=== PATIENT | male | born 1995 | race Caucasian/White ===

== ENCOUNTER 2022-02-19 15:35 | Emergency (ER) | payer OTHER ==
[2022-02-19 16:38] LABS: HEMOGLOBIN 15.6 gm/dl (14.0-17.5); RED BLOOD COUNT 5.42 M/UL (4.20-5.50); WHITE BLOOD COUNT 6.4 K/UL (4.5-11.0)
[2022-02-19 16:57] LABS: BUN/CREATININE RATIO 19 (0-10)
[2022-02-19 17:06] LABS: ADENOVIRUS F 40/41 Not Detected (Negative); ASTROVIRUS Not Detected (Negative); CAMPYLOBACTER Not Detected (Negative); CRYPTOSPORIDIUM Not Detected (Negative); E.COLI 0157 Not Detected (Negative); ENTAMOEBA HISTOLYTICA Not Detected (Negative); ENTEROAGGREGATIVE E.COLI (EAEC Not Detected (Negative); ENTEROPATHOGENIC E.COLI (EPEC) Not Detected (Negative); ENTEROTOXIGENIC E.COLI (ETEC) Not Detected (Negative); GIARDIA LAMBLIA Not Detected (Negative); NOROVIRUS GI/GII Not Detected (Negative); PLESIOMONAS SHIGELLOIDES Not Detected (Negative); SALMONELLA Not Detected (Negative); SAPOVIRUS Not Detected (Negative); SHIG/ENTEROINVAS.ECOLI (EIEC) Not Detected (Negative); SHIGA-LIK TOX.PRO.E.COLI (STEC Not Detected (Negative); VIBRIO Not Detected (Negative); VIBRIO CHOLERAE Not Detected (Negative); YERSINIA ENTEROCOLITICA Not Detected (Negative)
[2022-02-19 18:52] LABS: CLOSTRIDIUM DIFFICILE TOX A/B Not Detected (Negative)
[2022-02-19 18:55] LABS: ROTOVIRUS A DETECTED (Negative)
[2022-02-19] MEDS ORDERED: ZOFRAN 4 MG TAB4 MG PO (19:36)
== END 2022-02-19 19:52 | disposition home or self-care (01) ==
LOC: ER1 15:35
PROVIDERS: Preventive Medicine Occupational Medicine
DX: A08.0 Rotaviral enteritis (principal); I10 Essential (primary) hypertension
CPT/HCPCS: 80053; 83690; 85025; 85652; 86140; 87507; 96374; 96375; 99284; J7030; Q9967